=== PATIENT | male | born 1955 | race Caucasian/White ===

== ENCOUNTER 2018-12-26 11:52 | Inpatient (IN) | payer OTHER ==
[2018-12-26] MEDS ORDERED: Levofloxacin 750mg IV 750 MG/150 ML BAG IV ONE (12:35)
[2018-12-26] MEDS ORDERED: NA CHLORIDE 0.9% 3,000 ML ONE (12:35)
[2018-12-26 12:56] LABS: Absolute Lymphocytes (CBC) 0.5 K/uL (0.7-4.9); Basophils % 0.3 % (0-1.3); Hematocrit 51.7 % (39.6-49.0); Lymphocytes % 4.2 % (15.3-44.8); MPV 9.4 fL (7.6-11.3); RBC Red Blood Cell Count 4.97 M/uL (4.33-5.43)
[2018-12-26 13:00] LABS: Protime INR 1.01
[2018-12-26 13:13] LABS: Albumin 2.7 g/dL (3.4-5.0); Bilirubin Direct 0.3 mg/dL (0-0.2); Bilirubin Total 0.9 mg/dL (0.2-1.0); CKMB Creatine Kinase MB 1.7 ng/mL (0.3-3.6); Protein, Total 6.6 g/dL (6.4-8.2); Troponin (Emerg Dept Use Only) 0.03 ng/mL (0.0-0.045)
--- NOTE | 2018-12-26 13:18 | RAD REPORT ---
EXAM DESCRIPTION: [place] Single View12/26/2018 12:57 pm CLINICAL HISTORY: Fever chills COMPARISON: none FINDINGS: Diffuse left lung opacities are present. Left lung volume loss The right lung probably is clear of acute infiltrate. The heart is mildly enlarged IMPRESSION: Diffuse left lung opacities consistent with pneumonia. This should be followed until it is clear to help exclude a post obstructive process/underlying mass
--- NOTE | 2018-12-26 13:30 | ER ---
Nurse's Notes [facility] Name: Radhames Brumfield Age: 63 yrs Sex: Male : 1955 Arrival Date: 12/26/2018 Time: 11:54 Bed 25 Private MD: Diagnosis: Pneumonia due to other specified bacteria;Sepsis;Urinary tract infection, site not specified Presentation: 12/26 12:18 Presenting complaint: Patient states: Fever, chills, cough, SOB and chest pain since ph Sunday night, blood in urine and worsening chest pain Sunday, also reports coughing up blood, hx of COPD and pnemonia. Transition of care: patient was not received from another setting of care. Onset of symptoms was December 26, 2018. Risk Assessment: Do you want to hurt yourself or someone else? Patient reports no desire to harm self or others. Initial Sepsis Screen: Does the patient meet any 2 criteria? RR > 20 per min. HR > 90 bpm. Does the patient have a suspected source of infection? Yes: Productive cough/pneumonia If YES to both, name of provider notified: Mata COCHRAN. Care prior to arrival: None. 12:18 Method Of Arrival: Wheelchair ph 12:18 Acuity: GILLIAN 2 ph Historical: - Allergies: 12:24 Morphine; ph - PMHx: 12:24 COPD; Hypothyroidism; ph - Immunization history:: Adult Immunizations unknown. - Social history:: Smoking status: Patient uses tobacco products, denies chronic smoking, but will smoke occasionally. - Ebola Screening: : No symptoms or risks identified at this time. Screenin:44 Abuse screen: Denies threats or abuse. Denies injuries from another. Nutritional ca1 screening: No deficits noted. Tuberculosis screening: No symptoms or risk factors identified. Fall Risk IV access (20 points). Total Higuera Fall Scale indicates No Risk (0-24 pts). Assessment: 12:44 General: Appears in no apparent distress. comfortable, Behavior is calm, cooperative, ca1 appropriate for age, Reports chills for >3 days, fever for > 3 days, feeling ill for > 3 days, fatigue for >3 days. Pain: Complains of pain in chest Pain does not radiate. Pain currently is 2 out of 10 on a pain scale. Pain began Sunday Aggravated by cough. Neuro: Level of Consciousness is awake, alert, obeys commands, Oriented to person, place, time, situation. Cardiovascular: Heart tones S1 S2 present Capillary refill < 3 seconds Patient's skin is warm and dry. Pulses are all present. Rhythm is sinus tachycardia. Respiratory: Reports shortness of breath on exertion cough that is productive, since Sunday Airway is patent Respiratory effort is even, unlabored, Respiratory pattern is regular, symmetrical, Breath sounds are clear bilaterally. GI: Abdomen is flat, non-distended, Bowel sounds present X 4 quads. Abd is soft and non tender X 4 quads. : No deficits noted. No signs and/or symptoms were reported regarding the genitourinary system. EENT: No deficits noted. No signs and/or symptoms were reported regarding the EENT system. Derm: Skin is intact, is healthy with good turgor, Skin is pink, warm \T\ dry. Musculoskeletal: Circulation, motion, and sensation intact. Capillary refill < 3 seconds, Range of motion: intact in all extremities. 13:30 Reassessment: Patient appears in no apparent distress at this time. Patient and/or ca1 family updated on plan of care and expected duration. Pain level reassessed. Patient is alert, oriented x 3, equal unlabored respirations, skin warm/dry/pink. 14:30 Reassessment: Patient appears in no apparent distress at this time. Patient and/or ca1 family updated on plan of care and expected duration. Pain level reassessed. Patient is alert, oriented x 3, equal unlabored respirations, skin warm/dry/pink. 15:02 Reassessment: Dr. Davenport at bedside. ca1 15:30 Reassessment: Patient appears in no apparent distress at this time. Patient is alert, ca1 oriented x 3, equal unlabored respirations, skin warm/dry/pink. 16:31 Reassessment: Patient appears in no apparent distress at this time. Patient and/or ca1 family updated on plan of care and expected duration. Pain level reassessed. Patient is alert, oriented x 3, equal unlabored respirations, skin warm/dry/pink. Followed up for room assignment. Vital Signs: 12:22 BP 90 / 72; Pulse 97; Resp 26; Temp 98.4; Pulse Ox 95% on R/A; Weight 86.18 kg; Height ph 6 ft. 6 in. (198.12 cm); Pain 2/10; 13:30 BP 102 / 60; Pulse 86; Resp 28; Temp 97.5(A); Pulse Ox 100% on R/A; ca1 15:02 BP 113 / 82; Pulse 83; Resp 24 S; Temp 98.3(O); Pulse Ox 95% on R/A; ca1 15:30 BP 110 / 79; Pulse 80; Resp 28 S; Pulse Ox 94% on R/A; ca1 16:30 BP 107 / 77; Pulse 85; Resp 28 S; Pulse Ox 94% on R/A; ca1 17:08 BP 118 / 81; Pulse 87; Resp 28 S; Temp 98.8(O); Pulse Ox 97% on R/A; ca1 12:22 Body Mass Index 21.96 (86.18 kg, 198.12 cm) ph ED Course: 11:54 Patient arrived in ED. mr 12:00 Estella Ralph, GURPREET is Primary Nurse. ca1 12:21 Triage completed. ph 12:22 Mata Piper PA is PHCP. jr8 12:22 Yuan Zapien MD is Attending Physician. jr8 12:24 Arm band placed on Patient placed in an exam room, on a stretcher, on bus driver/monitor, ph on pulse oximetry. 12:41 Initial lab(s) drawn, by me, sent to lab. First set of blood cultures drawn by me. lt1 12:44 Patient has correct armband on for positive identification. Placed in gown. Bed in low ca1 position. Call light in reach. Side rails up X 1. compliance monitor on. Pulse ox on. NIBP on. 12:44 No provider procedures requiring assistance completed. Patient maintains SpO2 ca1 saturation greater than 95% on room air. 12:49 Inserted saline lock: 20 gauge in left antecubital area, using aseptic technique. lt1 12:56 X-ray completed. Portable x-ray completed in exam room. Patient tolerated procedure mh1 well. 12:59 Chest Single View XRAY In Process Unspecified. EDMS 13:06 Second set of blood cultures drawn by me. lt1 13:07 Inserted saline lock: 20 gauge in right forearm, using aseptic technique. lt1 13:28 Ken Davenport DO is Hospitalizing Provider. jr8 15:19 Lactate Sent. ca1 16:56 Patient admitted, IV remains in place. ca1 Administered Medications: 12:37 Drug: NS 0.9% (30 ml/kg) 30 ml/kg Route: IV; Rate: bolus; Site: left antecubital; ca1 12:44 Drug: NS 0.9% (30 ml/kg) 30 ml/kg Route: IV; Rate: bolus; Site: left antecubital; ca1 15:20 Follow up: Urine output 200 ml; Response: No adverse reaction; IV Status: Completed ca1 infusion 13:04 Drug: LevaQUIN 750 mg Volume: 150 ml; Route: IVPB; Infused Over: 90 mins; Site: left ca1 antecubital; 14:30 Follow up: Response: No adverse reaction; IV Status: Completed infusion ca1 Output: 13:31 Urine: 90ml (Voided); Total: 90ml. ca1 15:20 Urine: 200ml; Total: 290ml. ca1 Outcome: 13:29 Decision to Hospitalize by Provider. jrVirgil 16:56 Admitted to Med/surg accompanied by tech, via stretcher, room 205, with chart, Report ca1 called to GORDO Hilton RN 16:56 Condition: stable 16:56 Instructed on the need for admit. 17:16 Patient left the ED. ca1 Signatures: Dispatcher [employer] EDKS WilfredoGissel mr RochaKatelin 1 Mata Piper PA PA jr8 Paty Tracy, RN RN ph Estella Ralph RN RN ca1 Jordyn Rg lt1 Corrections: (The following items were deleted from the chart) 12:24 12:18 Acuity: GILLIAN 3 ph ph
--- NOTE | 2018-12-26 13:31 | EDPHYS ---
Physician Documentation [facility] Name: Radhames Brumfield Age: 63 yrs Sex: Male : 1955 Arrival Date: 12/26/2018 Time: 11:54 Bed 25 Private MD: ED Physician Yuan Zapien HPI: 12/26 13:23 This 63 yrs old Male presents to ER via Wheelchair with complaints of Fever, jr8 Chest Pain, Cough. 13:23 The patient reports fever, not measured (subjective). Onset: The symptoms/episode jr8 began/occurred gradually, 4 day(s) ago. Modifying factors: there are no obvious modifying factors. Associated signs and symptoms: Pertinent positives: chills, cough, shortness of breath. Severity of symptoms: At their worst the symptoms were moderate in the emergency department the symptoms are unchanged. The patient has not experienced similar symptoms in the past. The patient has not recently seen a physician. Historical: - Allergies: 12:24 Morphine; ph - PMHx: 12:24 COPD; Hypothyroidism; ph - Immunization history:: Adult Immunizations unknown. - Social history:: Smoking status: Patient uses tobacco products, denies chronic smoking, but will smoke occasionally. - Ebola Screening: : No symptoms or risks identified at this time. ROS: 13:23 Eyes: Negative for injury, pain, redness, and discharge, ENT: Negative for injury, jr8 pain, and discharge, Neck: Negative for injury, pain, and swelling, Abdomen/GI: Negative for abdominal pain, nausea, vomiting, diarrhea, and constipation, Back: Negative for injury and pain, MS/Extremity: Negative for injury and deformity, Skin: Negative for injury, rash, and discoloration, Neuro: Negative for headache, weakness, numbness, tingling, and seizure. 13:23 Constitutional: Positive for chills, fever. 13:23 Cardiovascular: Positive for chest pain, of the left anterior and posterior chest . 13:23 Respiratory: Positive for cough, dyspnea on exertion, shortness of breath. Exam: 13:23 Eyes: Pupils equal round and reactive to light, extra-ocular motions intact. Lids and jr8 lashes normal. Conjunctiva and sclera are non-icteric and not injected. Cornea within normal limits. Periorbital areas with no swelling, redness, or edema. ENT: Nares patent. No nasal discharge, no septal abnormalities noted. Tympanic membranes are normal and external auditory canals are clear. Oropharynx with no redness, swelling, or masses, exudates, or evidence of obstruction, uvula midline. Mucous membranes moist. Neck: Trachea midline, no thyromegaly or masses palpated, and no cervical lymphadenopathy. Supple, full range of motion without nuchal rigidity, or vertebral point tenderness. No Meningismus. Cardiovascular: Regular rate and rhythm with a normal S1 and S2. No gallops, murmurs, or rubs. Normal PMI, no JVD. No pulse deficits. Abdomen/GI: Soft, non-tender, with normal bowel sounds. No distension or tympany. No guarding or rebound. No evidence of tenderness throughout. Back: No spinal tenderness. No costovertebral tenderness. Full range of motion. Skin: Warm, dry with normal turgor. Normal color with no rashes, no lesions, and no evidence of cellulitis. MS/ Extremity: Pulses equal, no cyanosis. Neurovascular intact. Full, normal range of motion. Neuro: Awake and alert, GCS 15, oriented to person, place, time, and situation. Cranial nerves II-XII grossly intact. Motor strength 5/5 in all extremities. Sensory grossly intact. Cerebellar exam normal. Normal gait. 13:23 Respiratory: the patient does not display signs of respiratory distress, Respirations: tachypnea, that is mild, Breath sounds: decreased breath sounds, that are mild, are heard in the left posterior lower lobe. Vital Signs: 12:22 BP 90 / 72; Pulse 97; Resp 26; Temp 98.4; Pulse Ox 95% on R/A; Weight 86.18 kg; Height ph 6 ft. 6 in. (198.12 cm); Pain 2/10; 13:30 BP 102 / 60; Pulse 86; Resp 28; Temp 97.5(A); Pulse Ox 100% on R/A; ca1 15:02 BP 113 / 82; Pulse 83; Resp 24 S; Temp 98.3(O); Pulse Ox 95% on R/A; ca1 15:30 BP 110 / 79; Pulse 80; Resp 28 S; Pulse Ox 94% on R/A; ca1 16:30 BP 107 / 77; Pulse 85; Resp 28 S; Pulse Ox 94% on R/A; ca1 17:08 BP 118 / 81; Pulse 87; Resp 28 S; Temp 98.8(O); Pulse Ox 97% on R/A; ca1 12:22 Body Mass Index 21.96 (86.18 kg, 198.12 cm) ph MDM: 12:22 Patient medically screened. 13:23 Data reviewed: vital signs, nurses notes, lab test result(s), EKG, radiologic studies, jr8 plain films, and as a result, I will discharge patient. Data interpreted: Pulse oximetry: on room air is 95 %. Interpretation: normal. Counseling: I had a detailed discussion with the patient and/or guardian regarding: the historical points, exam findings, and any diagnostic results supporting the discharge/admit diagnosis, lab results, radiology results, the need for further work-up and treatment in the hospital. Physician consultation: Ken Davenport DO was called at 13:28, was contacted at 13:28, regarding admission, to the telemetry unit. consult, patient's condition, and will see patient. 12/26 12:30 Order name: Basic Metabolic Panel; Complete Time: 13:16 12/26 12:30 Order name: Blood Culture Adult (2) 12/26 12:30 Order name: CBC with Diff; Complete Time: 13:55 12/26 12:30 Order name: Ckmb; Complete Time: 13:16 12/26 12:30 Order name: CPK; Complete Time: 13:16 12/26 12:30 Order name: Lactate; Complete Time: 13:16 12/26 12:30 Order name: LFT's; Complete Time: 13:16 12/26 12:30 Order name: Lipase; Complete Time: 13:16 12/26 12:30 Order name: Procalcitonin; Complete Time: 13:29 12/26 12:30 Order name: Protime (+inr); Complete Time: 13:16 12/26 12:30 Order name: Ptt, Activated; Complete Time: 13:16 12/26 12:30 Order name: Troponin (emerg Dept Use Only); Complete Time: 13:16 12/26 12:30 Order name: Urine Microscopic Only; Complete Time: 13:55 12/26 12:41 Order name: Glucose, Ancillary Testing; Complete Time: 13:16 EDMS 12/26 12:30 Order name: Chest Single View XRAY; Complete Time: 13:22 jr8 12/26 12:30 Order name: Accucheck; Complete Time: 12:50 jr8 12/26 12:30 Order name: Cardiac monitoring; Complete Time: 12:50 jr8 12/26 12:30 Order name: EKG - Nurse/Tech; Complete Time: 12:50 jr8 12/26 12:30 Order name: IV Saline Lock - Large Bore; Complete Time: 12:50 jr8 12/26 12:30 Order name: Labs collected and sent; Complete Time: 12:50 8 12/26 12:30 Order name: O2 Per Protocol; Complete Time: 12:50 jr8 12/26 12:30 Order name: O2 Sat Monitoring; Complete Time: 12:50 jr8 12/26 13:34 Order name: Urine Dipstick--Ancillary (enter results) hb 12/26 13:39 Order name: Urine Dipstick-Ancillary; Complete Time: 13:45 EDMS 12/26 13:46 Order name: Manual Differential; Complete Time: 13:55 EDMS 12/26 13:49 Order name: Urine Culture EDMS 12/26 15:09 Order name: Lactate; Complete Time: 16:13 ms 12/26 12:30 Order name: Urine Dipstick-Ancillary (obtain specimen); Complete Time: 13:30 jr8 Administered Medications: 12:37 Drug: NS 0.9% (30 ml/kg) 30 ml/kg Route: IV; Rate: bolus; Site: left antecubital; ca1 12:44 Drug: NS 0.9% (30 ml/kg) 30 ml/kg Route: IV; Rate: bolus; Site: left antecubital; ca1 15:20 Follow up: Urine output 200 ml; Response: No adverse reaction; IV Status: Completed ca1 infusion 13:04 Drug: LevaQUIN 750 mg Volume: 150 ml; Route: IVPB; Infused Over: 90 mins; Site: left ca1 antecubital; 14:30 Follow up: Response: No adverse reaction; IV Status: Completed infusion ca1 Disposition: 12/27 08:19 Co-signature as Attending Physician, Yuan Zapien MD I agree with the assessment and kdr plan of care. Disposition: 12/26/18 13:29 Hospitalization ordered by Ken Davenport for Inpatient Admission. Preliminary diagnosis are Pneumonia due to other specified bacteria, Sepsis, Urinary tract infection, site not specified. - Bed requested for Telemetry/MedSurg (Inpatient). - Status is Inpatient Admission. ca1 - Condition is Stable. - Problem is new. - Symptoms have improved. UTI on Admission? Yes Signatures: Dispatcher [employer] EDME Yuan Zapien MD MD [facility] Mata Piper PA PA jr8 Paty Tracy, RN RN Josias Rosas, RN RN ja1 Acob, Estella RN RN ca1 Corrections: (The following items were deleted from the chart) 12/26 13:28 13:19 Thorax W/ Con+CT.RAD.BRZ ordered. [facility] 13:55 13:29 Hospitalization Ordered by Ken Davenport DO for Inpatient Admission. Preliminary jr8 diagnosis is Pneumonia due to other specified bacteria; Sepsis. Bed requested for Telemetry/MedSurg (Inpatient). Status is Inpatient Admission. Condition is Stable. Problem is new. Symptoms have improved. UTI on Admission? No. jr8 13:55 13:55 12/26/2018 13:29 Hospitalization Ordered by Ken Davenport DO for Inpatient jr8 Admission. Preliminary diagnosis is Pneumonia due to other specified bacteria; Sepsis. Bed requested for Telemetry/MedSurg (Inpatient). Status is Inpatient Admission. Condition is Stable. Problem is new. Symptoms have improved. UTI on Admission? Yes. jr8 16:31 13:55 12/26/2018 13:29 Hospitalization Ordered by Ken Davenport DO for Inpatient ja1 Admission. Preliminary diagnosis is Pneumonia due to other specified bacteria; Sepsis; Urinary tract infection, site not specified. Bed requested for Telemetry/MedSurg (Inpatient). Status is Inpatient Admission. Condition is Stable. Problem is new. Symptoms have improved. UTI on Admission? Yes. jr8 17:16 16:31 12/26/2018 13:29 Hospitalization Ordered by Ken Davenport DO for Inpatient ca1 Admission. Preliminary diagnosis is Pneumonia due to other specified bacteria; Sepsis; Urinary tract infection, site not specified. Bed requested for Telemetry/MedSurg (Inpatient). Status is Inpatient Admission. Condition is Stable. Problem is new. Symptoms have improved. UTI on Admission? Yes. ja1
[2018-12-26 13:38] LABS: Urine Blood 1+ (NEG); Urine Glucose NEGATIVE (NEG); Urine Protein 2+ (NEG); Urine pH 5.5 (5.0-7.0)
[2018-12-26 13:47] LABS: Urine Bacteria 20-50 /HPF (NONE SEEN); Urine Culture Reflex Order REFLEXED; Urine RBC <5 /HPF (NONE SEEN)
[2018-12-26 13:48] LABS: Urine Coarse Granular Casts FEW /LPF (NONE SEEN)
[2018-12-26 13:50] LABS: Platelet Estimate ADEQ
[2018-12-26 13:51] LABS: Blood Morphology Comment NOTED (NOT SEEN); Dohle Bodies NOTED; Macrocytosis 1+
--- NOTE | 2018-12-26 16:18 | P.HP ---
Certification for Inpatient Patient admitted to: Inpatient With expected LOS: >2 Midnights Patient will require the following post-hospital care: None Practitioner: I am a practitioner with admitting privileges, knowledge of patient current condition, hospital course, and medical plan of care. Services: Services provided to patient in accordance with Admission requirements found in Title 42 Section 412.3 of the Code of Federal Regulations Patient History Date of Service: 12/26/18 Primary Care Provider: [facility] Michael([place], [place]) Reason for admission: Fever, chills, shortness of breath History of Present Illness: 63-year-old male presented to the emergency room with fever, chills and shortness of breath. Patient with history of COPD and hypothyroidism. Patient reports over the last 4 days he has been getting worse with symptoms of fever, chills, cough and shortness of breath. He reported on Sunday he started to have fever and chills which was unusual. On Sunday he developed cough with shallow breathing. The following day he continued to have increasing shortness of breath and weakness. He did report some coughing up of blood. Left-sided chest pain, pleuritic in nature was also noted. He had poor oral intake. He was getting more weak. He came to ER for evaluation. In the ER patient evaluated. Patient was slightly hypotensive with slight tachypneic. Room-air saturations within normal range. White count 11.8, hemoglobin 17. Sodium 137, potassium 4.0. BUN of 22, creatinine 1.08 with a GFR 72. Glucose 160. Lactic acid and pro calcitonin were elevated. Urinalysis showed some bacteria. Chest x-ray revealed diffuse left lung opacities with some lung volume loss. Right lung was clear of infiltrate. The patient was stabilize in the emergency room. Sepsis protocol was initiated. Patient received aggressive IV fluid hydration and IV antibiotic therapy. Cultures were obtained. Patient was admitted for further evaluation and treatment. When I saw the patient the ER, he appeared improved. Blood pressure also improved. Patient reports family history of mother having lung cancer. Father had non-Hodgkin's lymphoma. He does still smoke and drink alcohol regularly. Patient stable at this time. Home medications list reviewed: Yes - Past Medical/Surgical History Diabetic: No -: COPD -: Hypothyroidism -: History of hypertension -: Tobacco abuse -: Alcohol use -: Bilateral knee surgeries -: Sinus surgery Psychosocial/ Personal History: Patient is . He works in renovating houses. - Family History Father -: Cancer (Non-Hodgkin's lymphoma) Mother -: Heart disease, Hypertension, Diabetes, Cancer (Lung cancer) - Social History Smoking Status: Heavy Tobacco smoker (>10 cigarettes/day) Counseled patient to stop smoking for: less than 10 minutes Smoking therapy provided: Yes Patient receptive to therapy: Yes Alcohol use: Yes Caffeine use: Yes Place of Residence: Home Review of Systems General: Fever, Chills, Weakness, Malaise, As per HPI Eyes: Unremarkable ENT: Nose Congestion, As per HPI Respiratory: Cough, Shortness of Breath, Hemoptysis, SOB with Excertion, Pleuritic Pain, As per HPI Cardiovascular: As per HPI Gastrointestinal: Unremarkable Genitourinary: Unremarkable Musculoskeletal: Unremarkable Integumentary: Unremarkable Neurological: Weakness, As per HPI Lymphatics: Unremarkable Physical Examination - Physical Exam General: Alert, In no apparent distress, Oriented x3, Cooperative, Other ( Patient compensating well. Room-air saturations within normal range. Blood pressure improved) HEENT: Atraumatic, Normocephalic, PERRLA, Other (Increased mucus drainage) Neck: Supple, No Thyromegaly Respiratory: Diminished (Diminished to the left base), Crackles/rales (Crackles to the left base) Cardiovascular: Normal pulses, Regular rate/rhythm Gastrointestinal: Normal bowel sounds, Soft and benign, Non-distended, No tenderness, No masses, No rebound, No guarding Musculoskeletal: No erythema, No tenderness, No warmth Integumentary: No tenderness/swelling, No erythema, No warmth, No cyanosis Neurological: Normal speech, Normal strength at 5/5 x4 extr, Normal tone, Normal affect - Studies Laboratory Data (last 24 hrs) 12/26/18 12:41: PT 11.9, INR 1.01, APTT 35.2 12/26/18 12:41: WBC 11.8 H, Hgb 17.3, Hct 51.7 H, Plt Count 194 12/26/18 12:41: Sodium 137, Potassium 4.0, BUN 22 H, Creatinine 1.05, Glucose 160 H, Total Bilirubin 0.9, AST 29, ALT 37, Alkaline Phosphatase 68, Lipase 33 L Assessment and Plan - Plan Impression: Fever, chills, shortness of breath and hemoptysis secondary to left-sided pneumonia with sepsis complicated with underlying COPD Hypothyroidism Tobacco abuse Alcohol use Plan: Fever, chills, shortness of breath and hemoptysis secondary to left-sided pneumonia with sepsis complicated with underlying COPD: Patient will be admitted for further evaluation and treatment. Sepsis protocol initiated. Patient received aggressive IV fluid hydration. Antibiotic-Levaquin has been started. Will obtain blood and urine culture. Will monitor serial chest x-ray and lab. Will monitor blood pressure closely. Pulmonology consulted to further evaluate. Will obtain CT chest to further assess this condition. Family history of lung cancer noted. If patient continues with hemoptysis will need to consider bronchoscopy during this hospitalization. Continue COPD medication. Will provide oxygen to maintain sats above 90%. Will provide medication for cough, congestion. DVT prophylaxis-Lovenox in place. Will monitor closely. Anticipate discharge in the next 3-5 days with clinical improvement. Daytime hospitalist team will continuous care. Hypothyroidism: Restart home medication levothyroxine 125 mcg daily. Will check tsh and free T4. Tobacco abuse: Will provide nicotine patch. Tobacco cessation education provided. Alcohol use: Alcohol cessation education provided. Will start folic acid and thiamine. Continue IV fluid. Will check urine drug screen. Discharge Plan: Home Plan to discharge in: Greater than 2 days - Advance Directives Does patient have a Living Will: No Does patient have a Durable POA for Healthcare: No - Code Status/Comfort Care Code Status Assessed: Yes (Patient is full code) Time Spent Managing Pts Care (In Minutes): 55
--- NOTE | 2018-12-26 16:27 | EKG ---
Test Date: 2018-12-26 Test Time: 12:22:42 Business Continuity Planner: CHAKA MEASUREMENT RESULTS: Intervals: Rate: 97 OH: 130 QRSD: 96 QT: 348 QTc: 441 [place]: P: 117 OH: 130 QRS: 77 T: 81 INTERPRETIVE STATEMENTS: Sinus rhythm with premature atrial complexes Nonspecific T wave abnormality Abnormal ECG No previous ECG available for comparison Electronically Signed On 12-26-18 16:25:31 CDT by Jeff Daniels
[2018-12-26] MEDS ORDERED: ACETAMINOPHEN 500 MG TAB PO PRN (17:57)
[2018-12-26] MEDS ORDERED: ONDANSETRON 4 MG/2 ML VIAL IV PRN (17:57)
--- NOTE | 2018-12-26 18:51 | RAD REPORT ---
EXAM DESCRIPTION: CT - Thorax Wo Con - 12/26/2018 6:20 pm CLINICAL HISTORY: COPD, left-sided pneumonia, COPD COMPARISON: Portable chest same date TECHNIQUE: Axial 5 mm thick images of the chest were obtained without IV contrast. All CT scans are performed using dose optimization technique as appropriate and may include automated exposure control or mA/KV adjustment according to patient size. FINDINGS: Lung proctor are hyperexpanded particularly of the left upper lobe. There is extensive airs pace opacification throughout the posterior left upper lobe from apex to base. No cavitation. There a re numerous cystic or low-density areas within the areas of consolidation. Prominent emphysematous ch anges are present in each upper lobe. Single most likely etiology for this pattern is a large left up per lobe pneumonia. No endobronchial lesion. There is partial atelectasis of the left lower lobe. Ate lectasis changes are present in the right lower lobe with a large cystic bullous cavity in the superi or segment of the right lower lobe. In the posteromedial right upper lobe at the aortic arch level there is a 4.9 centimeter rounded mass . Margins are spiculated. No air bronchograms are seen. While this is still potentially an pneumonia, the finding is much more concerning for a primary lung malignancy. No pleural thickening or pleural effusion. No pneumothorax. No abnormal mediastinal or hilar masses or lymphadenopathy seen. No gross aortic or pulmonary artery finding suspected. Assessment is limited in the absence of IV contrast. No pericardial thickening or effusion. No chest wall mass or abnormal axillary lymphadenopathy. Limited upper abdomen imaging does not adequately visualize the liver or adrenal glands. IMPRESSION: An irregularly marginated 4.9 centimeter mass is present in the posteromedial right uppe r lobe at the aortic arch level. Primary lung malignancy is favored over pneumonia. Extensive airspace opacification and interstitial opacification along the hyperexpanded left upper lo be from apex to base. Large pneumonia is favored over atypical malignant presentation. Re-evaluation of the lung findings can be made after medical management to allow resolution of the pn eumonia component of these findings.
[2018-12-26] MEDS: NACHLORIDE 0.45% 1,000 ML IV SCH (18:57)
[2018-12-26] MEDS: ARFORMOTEROL TARTRATE 15 MCG/2 ML VIAL.NEB NEB SCH (19:35)
[2018-12-26] MEDS: IPRATROPIUM BROM 0.5MG/2.5ML NEB PRN (19:35)
--- NOTE | 2018-12-26 19:43 | P.PN ---
Subjective Date of Service: 12/26/18 Primary Care Provider: [facility]([place], [place]) Chief Complaint: Fever, chills, shortness of breath Sepsis assessment. Patient improved. Patient without significant shortness of breath. Patient reports history of obstructive sleep apnea. Family is to bring his CPAP at night. Physical Examination - Vital Signs Temperature: 97.9 F Blood Pressure: 138/77 Pulse: 78 Respirations: 18 Pulse Ox (%): 92 - Physical Exam General: Alert, In no apparent distress, Oriented x3, Cooperative HEENT: Atraumatic Neck: Supple Respiratory: Crackles/rales (Crackles to the left base) Cardiovascular: Normal pulses, Regular rate/rhythm Capillary refill: >2 Seconds Gastrointestinal: Normal bowel sounds, Soft and benign, Non-distended, No ascites, No tenderness, No masses Musculoskeletal: No erythema, No tenderness, No warmth Integumentary: No erythema, No warmth, No cyanosis Neurological: Normal speech, Normal strength at 5/5 x4 extr, Normal tone, Normal affect - Studies Laboratory Data (last 24 hrs) 12/26/18 12:41: PT 11.9, INR 1.01, APTT 35.2 12/26/18 12:41: WBC 11.8 H, Hgb 17.3, Hct 51.7 H, Plt Count 194 12/26/18 12:41: Sodium 137, Potassium 4.0, BUN 22 H, Creatinine 1.05, Glucose 160 H, Total Bilirubin 0.9, AST 29, ALT 37, Alkaline Phosphatase 68, Lipase 33 L Medications List Reviewed: Yes Assessment & Plan Discharge Plan: Home Plan to discharge in: Greater than 2 days Physician Review Additional Text: Assessment as previous. Follow up sepsis protocol. Patient doing well this time. Patient improved with IV fluids antibiotic therapy. Patient reports history of obstructive sleep apnea. Family is to bring his CPAP from home. Will provide CPAP at night. Continue as previous. Time Spent Managing Pts Care (In Minutes): 25
[2018-12-26] MEDS ORDERED: LORAZEPAM 0.5 MG TABLET PO PRN (19:44)
[2018-12-26] MEDS: ENOXAPARIN 40 MG/0.4 ML SQ SCH (21:36)
[2018-12-26] MEDS: NICOTINE 21 MG/PAT TD SCH (21:37)
[2018-12-26] MEDS: GUAIFENESIN 600 MG SA TAB PO SCH (21:38)
[2018-12-26] MEDS: HYDROCODONE/APAP 7.5/325 MG TAB PO PRN (22:22)
[2018-12-27] MEDS: NACHLORIDE 0.45% 1,000 ML IV SCH ×2 (04:11→09:57)
[2018-12-27] MEDS: BENZONATATE 100 MG CAP PO PRN ×3 (04:31→19:55)
[2018-12-27] MEDS: LEVOTHYROXINE SOD 0.125 MG TAB PO SCH (04:33)
[2018-12-27] MEDS: HYDROCODONE/APAP 7.5/325 MG TAB PO PRN (06:26)
[2018-12-27 07:27] LABS: Absolute Lymphocytes (CBC) 0.4 K/uL (0.7-4.9); Basophils % 0.2 % (0-1.3); Hematocrit 52.7 % (39.6-49.0); Lymphocytes % 4.9 % (15.3-44.8); MPV 8.9 fL (7.6-11.3); RBC Red Blood Cell Count 5.07 M/uL (4.33-5.43)
[2018-12-27 07:52] LABS: BUN Blood Urea Nitrogen 15 mg/dL (7-18); Bicarbonate 22 mmol/L (21-32); Glucose Level 113 mg/dL (74-106); Magnesium 1.7 mg/dL (1.8-2.4); Potassium 3.8 mmol/L (3.5-5.1); Sodium Level 138 mmol/L (136-145); Thyroid Stimulating Hormone 0.968 uIU/mL (0.360-3.740)
[2018-12-27] MEDS: IPRATROPIUM BROM 0.5MG/2.5ML NEB PRN (08:02)
[2018-12-27] MEDS: ALBUTEROL 2.5 MG/3 ML NEB SOL NEB PRN ×2 (08:02→13:30)
[2018-12-27] MEDS: ARFORMOTEROL TARTRATE 15 MCG/2 ML VIAL.NEB NEB SCH ×2 (08:02→20:00)
--- NOTE | 2018-12-27 08:30 | RAD REPORT ---
EXAM DESCRIPTION: RAD - Chest Pa And Lat (2 Views) - 12/27/2018 6:46 am CLINICAL HISTORY: Pneumonia COMPARISON: CT chest December 26, portable chest December 26 TECHNIQUE: PA and lateral views of the chest were obtained. FINDINGS: The lungs are fibrotic and hyperexpanded as a baseline. Right suprahilar mass density agai n noted. This is fully detailed on the prior day CT chest report. Extensive interstitial and alveolar opacification remain in the left upper lobe extending from apex to base. This pneumonia pattern is n ot substantially different. CT demonstrated a hyperexpanded left upper lobe extensively involved by pneumonia. Left lower lobe atelectasis noted. Heart size is normal and central vasculature is within normal limits. No pleural effusion or pneumo thorax seen. No acute bony finding noted. No aortic abnormality. IMPRESSION: Extensive left upper lobe pneumonia findings. No significant or measurable improvement s ricardo prior day imaging. Right suprahilar lung mass also stable. This is more fully detailed on the prior day CT chest study.
[2018-12-27] MEDS ORDERED: MAGNESIUM SULFATE 1 gm IVPB 1 GM/100 ML BAG IV ONE (09:00)
[2018-12-27] MEDS ORDERED: POTASSIUM CL SA 10 MEQ TAB PO ONE (09:00)
[2018-12-27] MEDS: GUAIFENESIN 600 MG SA TAB PO SCH ×2 (09:46→21:56)
[2018-12-27] MEDS: ENOXAPARIN 40 MG/0.4 ML SQ SCH (09:46)
[2018-12-27] MEDS: NICOTINE 21 MG/PAT TD SCH (09:46)
[2018-12-27] MEDS: FOLIC ACID 1 MG TABLET PO SCH (09:47)
[2018-12-27] MEDS: THIAMINE HCL 100 MG TABLET PO SCH (09:47)
[2018-12-27] MEDS: TRAMADOL HCL 50 MG TAB PO PRN ×2 (09:50→19:54)
--- NOTE | 2018-12-27 11:14 | P.PN ---
Subjective Date of Service: 12/27/18 Primary Care Provider: [facility]([place], [place]) Chief Complaint: Fever, chills, shortness of breath Patient seen and examined at bedside with RN. Chart reviewed. Case discussed with pulmonology at this time. Patient still complains of having some shallow breathing. Does not know about the chest CT. Review of Systems 10-point ROS is otherwise unremarkable Physical Examination - Vital Signs Temperature: 97.8 F Blood Pressure: 109/60 Pulse: 68 Respirations: 16 Pulse Ox (%): 92 - Physical Exam General: Alert, In no apparent distress HEENT: Atraumatic, PERRLA, EOMI Neck: Supple, JVD not distended Respiratory: Normal air movement, Expiratory wheezes, Inspiratory wheezes, Rhonchi/gurgles Cardiovascular: Regular rate/rhythm, Normal S1 S2 Gastrointestinal: Normal bowel sounds, No tenderness Musculoskeletal: No tenderness Integumentary: No rashes Neurological: Normal speech, Normal tone, Normal affect Lymphatics: No axilla or inguinal lymphadenopathy - Studies Laboratory Data (last 24 hrs) 12/26/18 12:41: PT 11.9, INR 1.01, APTT 35.2 12/26/18 12:41: WBC 11.8 H, Hgb 17.3, Hct 51.7 H, Plt Count 194 12/26/18 12:41: Sodium 137, Potassium 4.0, BUN 22 H, Creatinine 1.05, Glucose 160 H, Total Bilirubin 0.9, AST 29, ALT 37, Alkaline Phosphatase 68, Lipase 33 L Medications List Reviewed: Yes Assessment And Plan - Current Problems (Diagnosis) (1) Left lower lobe pneumonia Current Visit: Yes Status: Acute Plan: Left lower lobe pneumonia noted on the chest CT. -currently on IV antibiotics will go ahead and continue that here in the hospital -patient with a lot of pain on the left lower aspect as well -pulmonology consulted. Awaiting recommendations at this time -will continue with current management duo nebs, IV antibiotics until further pulmonary recommendation Qualifiers: Pneumonia type: due to unspecified organism Qualified Code(s): J18.1 - Lobar pneumonia, unspecified organism (2) Mass of upper lobe of right lung Current Visit: Yes Status: Acute Plan: Patient with mass of the right upper lobe with history of smoking -consistent with malignancy most likely. -will follow up with pulmonology regarding further recommendations (3) COPD (chronic obstructive pulmonary disease) Current Visit: Yes Status: Chronic Qualifiers: COPD type: chronic bronchitis Chronic bronchitis type: mixed simple and mucopurulent Qualified Code(s): J41.8 - Mixed simple and mucopurulent chronic bronchitis (4) Smoking Current Visit: Yes Status: Chronic - Plan Continue monitor patient here closely. Will follow up with pulmonology recommendations here in the hospital. Continue with IV antibiotics and DuoNeb still blood. Discharge Plan: Home Plan to discharge in: Greater than 2 days - Code Status/Comfort Care Code Status Assessed: Yes Critical Care: No
--- NOTE | 2018-12-27 11:54 | P.CNS ---
Date of Consult: 12/27/18 Primary Care Provider: [facility]([place], [place]) Chief Complaint: Left pneumonia History of Present Illness: Patient is 63 years of age with a history of COPD heavy smoker got sick over the weekend started having fever chills productive cough admitted with significant pneumonia was recently seen by a supervisor respiratory in [place] and had some lymph nodes was scheduled to have a repeat CT scan of the chest that was denied patient takes trilogy at home he is self-employed Allergies morphine Adverse Reaction (Verified 12/26/18 17:57) Itching Home Medications: Fluticasone/Umeclidin/Vilanter [Trelegy Ellipta 100-62.5-25] 1 each IH DAILY 01/06 Levothyroxine Sodium [Synthroid] 0.125 mg PO DAILY 12/26/18 Melatonin 10 mg PO DAILY 12/26/18 Naproxen Sodium [Aleve] 2 tab-cap PO DAILY 12/26/18 - Past Medical/Surgical History Diabetic: No -: COPD -: Hypothyroidism -: History of hypertension -: Tobacco abuse -: Alcohol use -: Bilateral knee surgeries -: Sinus surgery Psychosocial/ Personal History: Patient is . He works in renovating houses. - Family History Father Medical History: Cancer Mother Medical History: Heart disease, Hypertension, Diabetes, Cancer - Social History Smoking Status: Current some day smoker Alcohol use: Yes Caffeine use: Yes Place of Residence: Home Review of Systems 10-point ROS is otherwise unremarkable General: Weakness Respiratory: Cough, Shortness of Breath Physical Examination Temp Pulse Resp BP Pulse Ox 97.8 F 68 16 109/60 92 12/27/18 11:14 12/27/18 11:14 12/27/18 11:14 12/27/18 11:14 12/27/18 11:14 General: Alert, Oriented x3 HEENT: Atraumatic Neck: Supple Respiratory: Crackles/rales (Extensive crackles on the left side bilateral rhonchi) Cardiovascular: No edema, Normal pulses, Regular rate/rhythm Gastrointestinal: Normal bowel sounds, Soft and benign Musculoskeletal: No clubbing, No swelling, No contractures Laboratory Data (last 24 hrs) 12/26/18 12:41: PT 11.9, INR 1.01, APTT 35.2 12/26/18 12:41: WBC 11.8 H, Hgb 17.3, Hct 51.7 H, Plt Count 194 12/26/18 12:41: Sodium 137, Potassium 4.0, BUN 22 H, Creatinine 1.05, Glucose 160 H, Total Bilirubin 0.9, AST 29, ALT 37, Alkaline Phosphatase 68, Lipase 33 L - Problems (1) Left lower lobe pneumonia Current Visit: Yes Status: Acute Plan: Patient is 63 years of age admitted with acute left upper lobe pneumonia in addition he also has a right upper lobe mass suspicious for a malignancy heavy smoker history of COPD is on trilogy patient concerned about the side effects of levofloxacin of change him over to Rocephin and Zithromax cultures are pending patient is not at risk for any resistant infections continue with bronchodilators patient is a heavy smoker or alcohol abuse vital signs are stable he has hypoxic labs showed normal white count he is polycythemic borderline with a macrocytosis continue with bronchodilators patient has a pulmonary physician in [place] was following him for abnormality on the CT scan patient needs to either follow up with his physician or myself as this mass is highly suspicious for malignancy Qualifiers: Pneumonia type: due to unspecified organism Qualified Code(s): J18.1 - Lobar pneumonia, unspecified organism
[2018-12-27] MEDS ORDERED: Levofloxacin 750mg IV 750 MG/150 ML BAG IV SCH (13:00)
[2018-12-27] MEDS: IPRATROPIUM BROM 0.5MG/2.5ML NEB SCH ×2 (13:30→20:00)
--- NOTE | 2018-12-27 14:21 | ECHO ---
HEIGHT: 6 ft 6 in WEIGHT: 193 lb 14.4 oz DATE OF STUDY: 12/27/[address]: Ken Davenport DO 2-DIMENSIONAL: YES M.MODE: YES DOPPLER: YES COLOR FLOW: YES TDS: YES PORTABLE: NO DEFINITY: NO BUBBLE STUDY: NO DIAGNOSIS: SEPSIS, PNEUMONIA LEFT SIDED CARDIAC HISTORY: CATHERIZATION: NO SURGERY: NO PROSTHETIC VALVE: NO PACEMAKER: NO MEASUREMENTS (cm) DIASTOLIC (NORMALS) SYSTOLIC (NORMALS) IVSd 1.2 (0.6-1.2) LA Diam 3.0 (1.9-4.0) LVEF 55% LVIDd 4.2 (3.5-5.7) LVIDs 3.0 (2.0-3.5) %FS 28% LVPWd 1.3 (0.6-1.2) Ao Diam 3.0 (2.0-3.7) 2 DIMENSIONAL ASSESSMENT: RIGHT ATRIUM: NORMAL LEFT ATRIUM: NORMAL RIGHT VENTRICLE: NORMAL LEFT VENTRICLE: NORMAL TRICUSPID VALVE: NORMAL MITRAL VALVE: POSSIBLE VEGETATION PULMONIC VALVE: NORMAL AORTIC VALVE: NORAML PERICARDIAL EFFUSION: NONE AORTIC ROOT: NORMAL LEFT VENTRICULAR WALL MOTION: NORMAL. DOPPLER/COLOR FLOW: NORMAL. COMMENTS: NORMAL LEFT VENTRICULAR EJECTION FRACTION. ABNORMAL MITRAL VALVE. POSSIBLE VEGETATION. TECHNOLOGIST: CARMEN SANTIAGO
[2018-12-27] MEDS ORDERED: HYDROCODONE/APAP 7.5/325 MG TAB PO PRN (21:19)
[2018-12-28] MEDS: IPRATROPIUM BROM 0.5MG/2.5ML NEB SCH ×2 (02:00→07:50)
[2018-12-28 05:37] LABS: Absolute Lymphocytes (CBC) 0.7 K/uL (0.7-4.9); Basophils % 0.1 % (0-1.3); Hematocrit 45.9 % (39.6-49.0); Lymphocytes % 5.7 % (15.3-44.8); MPV 9.4 fL (7.6-11.3); RBC Red Blood Cell Count 4.39 M/uL (4.33-5.43)
[2018-12-28 05:54] LABS: BUN Blood Urea Nitrogen 11 mg/dL (7-18); Bicarbonate 27 mmol/L (21-32); Glucose Level 104 mg/dL (74-106); Magnesium 1.8 mg/dL (1.8-2.4); Potassium 3.6 mmol/L (3.5-5.1); Sodium Level 137 mmol/L (136-145)
[2018-12-28] MEDS: LEVOTHYROXINE SOD 0.125 MG TAB PO SCH (06:05)
[2018-12-28 06:49] LABS: Blood Morphology Comment NOT SEEN (NOT SEEN); Platelet Estimate ADEQ
[2018-12-28] MEDS: ARFORMOTEROL TARTRATE 15 MCG/2 ML VIAL.NEB NEB SCH (07:50)
[2018-12-28] MEDS: THIAMINE HCL 100 MG TABLET PO SCH (08:10)
[2018-12-28] MEDS: ENOXAPARIN 40 MG/0.4 ML SQ SCH (08:10)
[2018-12-28] MEDS: GUAIFENESIN 600 MG SA TAB PO SCH (08:10)
[2018-12-28] MEDS: FOLIC ACID 1 MG TABLET PO SCH (08:11)
[2018-12-28] MEDS: NICOTINE 21 MG/PAT TD SCH (08:12)
[2018-12-28] MEDS ORDERED: CEFTRIAXONE/SWI 1gm 1 GM/10 ML SYR IV SCH (09:00)
[2018-12-28] MEDS ORDERED: CEFEPIME 1 GM/VIAL IV SCH (09:00)
[2018-12-28] MEDS ORDERED: PIPER/TAZO/NS 3.375gm 3.375 GM/100 ML BAG IVPB SCH (09:00)
[2018-12-28] MEDS ORDERED: LEVOTHYROXINE SOD 0.125 MG TAB PO SCH (09:00)
[2018-12-28] MEDS ORDERED: AZITHROMYCIN 250 MG TAB PO SCH (09:00)
[2018-12-28] MEDS ORDERED: VANCOMYCIN 2 GM in NA CHLORIDE 0.9% 500 ML IVPB SCH (10:00)
--- NOTE | 2018-12-28 11:34 | P.DS ---
Admission Date: 12/26/18 Discharge Date: 12/28/18 Primary Care Provider: [facility]([place], [place]) Reason for Admission: Left pneumonia Consultations: Cardiology and pulmonology - Problems (1) Left lower lobe pneumonia Current Visit: Yes Status: Acute Qualifiers: Pneumonia type: due to unspecified organism Qualified Code(s): J18.1 - Lobar pneumonia, unspecified organism (2) Mass of upper lobe of right lung Current Visit: Yes Status: Acute (3) COPD (chronic obstructive pulmonary disease) Current Visit: Yes Status: Chronic Qualifiers: COPD type: chronic bronchitis Chronic bronchitis type: mixed simple and mucopurulent Qualified Code(s): J41.8 - Mixed simple and mucopurulent chronic bronchitis (4) Smoking Current Visit: Yes Status: Chronic (5) Mitral valve vegetation Current Visit: Yes Status: Acute Brief History of Present Illness: 63-year-old male presented to the emergency room with fever, chills and shortness of breath. Patient with history of COPD and hypothyroidism. Patient reports over the last 4 days he has been getting worse with symptoms of fever, chills, cough and shortness of breath. He reported on Sunday he started to have fever and chills which was unusual. On Sunday he developed cough with shallow breathing. The following day he continued to have increasing shortness of breath and weakness. He did report some coughing up of blood. Left-sided chest pain, pleuritic in nature was also noted. He had poor oral intake. He was getting more weak. He came to ER for evaluation. In the ER patient evaluated. Patient was slightly hypotensive with slight tachypneic. Room-air saturations within normal range. White count 11.8, hemoglobin 17. Sodium 137, potassium 4.0. BUN of 22, creatinine 1.08 with a GFR 72. Glucose 160. Lactic acid and pro calcitonin were elevated. Urinalysis showed some bacteria. Chest x-ray revealed diffuse left lung opacities with some lung volume loss. Right lung was clear of infiltrate. The patient was stabilize in the emergency room. Sepsis protocol was initiated. Patient received aggressive IV fluid hydration and IV antibiotic therapy. Cultures were obtained. Patient was admitted for further evaluation and treatment. When I saw the patient the ER, he appeared improved. Blood pressure also improved. Patient reports family history of mother having lung cancer. Father had non-Hodgkin's lymphoma. He does still smoke and drink alcohol regularly. Patient stable at this time. Hospital Course: Overall during the hospital stay patient remained stable Patient was initially admitted to the hospital for shortness of breath with worsening of left-sided left lower pneumonia. Initially was started on IV antibiotics here in the hospital. Pulmonology was consulted as well. Patient had a CT thorax done here in the hospital which was consistent with right upper lobe mass and left lower lobe pneumonia that was extensive in nature. Pulmonology recommended discontinuing Levaquin and started patient on Rocephin and azithromycin. Over 24 hr patient had elevated white count along with band neutrophils had chills and fever overnight as well and thus was switched over to vancomycin and Zosyn. Patient had an echocardiogram done here in the hospital which was consistent with mitral valve vegetation. Patient most likely had septic emboli causing his left lower lobe pneumonia versus lung mass. Patient also has endocarditis. At this time patient does need a ROBERT to evaluate and treat further. The patient was referred for transfer to the [facility]. Patient was accepted at [facility] and was thus transferred there for further care. Vital Signs/Physical Exam: Temp Pulse Resp BP Pulse Ox 98.2 F 86 18 107/68 90 L 12/28/18 08:00 12/28/18 08:00 12/28/18 08:00 12/28/18 08:00 12/28/18 08:00 General: Alert, In no apparent distress HEENT: Atraumatic, PERRLA, EOMI Neck: Supple, JVD not distended Respiratory: Normal air movement, Crackles/rales, Expiratory wheezes, Inspiratory wheezes Cardiovascular: Regular rate/rhythm, Normal S1 S2 Gastrointestinal: Normal bowel sounds, No tenderness Musculoskeletal: No tenderness Integumentary: No rashes Neurological: Normal speech, Normal tone, Normal affect Lymphatics: No axilla or inguinal lymphadenopathy Laboratory Data at Discharge: WBC 12.1 K/uL (4.3-10.9) H D 12/28/18 04:44 Hgb 15.5 g/dL (13.6-17.9) 12/28/18 04:44 Hct 45.9 % (39.6-49.0) 12/28/18 04:44 Plt Count 183 K/uL (152-406) D 12/28/18 04:44 PT 11.9 SECONDS (9.5-12.5) 12/26/18 12:41 INR 1.01 12/26/18 12:41 APTT 35.2 SECONDS (24.3-36.9) 12/26/18 12:41 Sodium 137 mmol/L (136-145) 12/28/18 04:44 Potassium 3.6 mmol/L (3.5-5.1) 12/28/18 04:44 BUN 11 mg/dL (7-18) 12/28/18 04:44 Creatinine 0.71 mg/dL (0.55-1.3) 12/28/18 04:44 Glucose 104 mg/dL (74-106) 12/28/18 04:44 Magnesium 1.8 mg/dL (1.8-2.4) 12/28/18 04:44 Total Bilirubin 0.9 mg/dL (0.2-1.0) 12/26/18 12:41 AST 29 U/L (15-37) 12/26/18 12:41 ALT 37 U/L (12-78) 12/26/18 12:41 Alkaline Phosphatase 68 U/L (45-117) 12/26/18 12:41 Lipase 33 U/L (73-393) L 12/26/18 12:41 Home Medications: Fluticasone/Umeclidin/Vilanter [Trelegy Ellipta 100-62.5-25] 1 each IH DAILY 01/06 Levothyroxine Sodium [Synthroid] 0.125 mg PO DAILY 12/26/18 Melatonin 10 mg PO DAILY 12/26/18 Naproxen Sodium [Aleve] 2 tab-cap PO DAILY 12/26/18
[2018-12-28] MEDS ORDERED: VANCOMYCIN 1.5 GM in NA CHLORIDE 0.9% 500 ML IVPB SCH (21:00)
== END 2018-12-28 11:46 | disposition short-term general hospital (02) | DRG 871 ==
LOC: ER 11:52 → ERHOLD 15:08 → 2ND 16:58
PROVIDERS: ADMIT Family Medicine; ATTEND Family Medicine
DX: A41.9 Sepsis, unspecified organism (principal); J18.1 Lobar pneumonia, unspecified organism; I33.0 Acute and subacute infective endocarditis; J44.0 Chronic obstructive pulmonary disease with (acute) lower respiratory infection; R91.8 Other nonspecific abnormal finding of lung field; F17.210 Nicotine dependence, cigarettes, uncomplicated; E03.9 Hypothyroidism, unspecified; Z72.89 Other problems related to lifestyle; Z88.5 Allergy status to narcotic agent
CPT/HCPCS: 36415; 71045; 71046; 71250; 80048; 80076; 81003; 81015; 82550; 82553; 82962; 83605; 83690; 83735; 84145; 84439; 84443; 84484; 85025; 85610; 85730; 87040; 87070; 87086; 87088; 87205; 93005; 93306; 94640; 94760; 96365; 96366; 99285; J0696; J1650; J2543; J3475; J7030; J7605